=== PATIENT | female | born 1985 | race Hispanic/Latino ===

== ENCOUNTER 2019-02-28 05:39 | Day surgery (SDC) | payer BC ==
[2019-02-27 16:42] VITALS: BP 151/84
[2019-02-27 16:55] LABS: BASOPHILS % (AUTO) 0.3 % (0.0-5.0); EOSINOPHILS % (AUTO) 0.4 % (0.0-8.0); HEMATOCRIT 39.5 % (36-48); LYMPHOCYTES % (AUTO) 27.1 % (21.0-51.0); MEAN CORPUSCULAR HEMOGLOBIN 28.2 pg (27.0-33.0); MEAN CORPUSCULAR HGB CONC 33.7 g/dL (32.0-36.0); MEAN CORPUSCULAR VOLUME 83.6 fL (79-99); MONOCYTES % (AUTO) 6.4 % (3.0-13.0); NEUTROPHILS % (AUTO) 65.8 % (40.0-77.0); PLATELET COUNT (AUTO) 260 K/uL (130-400); RED BLOOD CELL COUNT(AUTO) 4.73 MIL/uL (4.00-5.50); RED CELL DISTRIBUTION WIDTH 13.8 % (11.0-15.5); WHITE BLOOD COUNT (AUTO) 12.1 K/uL (4.8-10.8)
[2019-02-27 17:18] LABS: CREATININE 0.7 mg/dL (0.5-1.5); POTASSIUM 3.3 mmol/L (3.5-5.1)
--- NOTE | 2019-02-27 17:54 | NUR ---
CALLED ABNORMAL WBC OF 12.1,K3.3. NO NEW ORDERS RECEIVED, OK TO PROCEED.
[~2019-02-28] VITALS: Ht 162.6 cm; Wt 85.1 kg
[2019-02-28] VITALS (15 sets, daily range): BP systolic 112–145; BP diastolic 70–89
[~2019-02-28 05:39] MED LIST: CYCL10 PO; OLME20TA22 PO; TYL3 PO
[2019-02-28] MEDS ORDERED: LACTATED RINGERS 1000ML 1,000 ML IV ONE (06:55)
[2019-02-28] MEDS ORDERED: CEFAZOLIN SODIUM 1 GM VIAL ONE ×2 (06:55→07:53)
--- NOTE | 2019-02-28 07:12 | NUR ---
POTENTIAL FOR INFECTION: SHAVED LEFT LEG / KNEE FOLLOWED BY WIPING WITH SAMMIE: 2% CHLORHEXIDINE GLUCONATE CLOTH PATIENTS PRE-OP SKIN PREP PER CHUCKIE LAWTON MA,
[2019-02-28] MEDS ORDERED: LIDOCAINE PF 2% 5ML ABBOJECT ONE (07:21)
[2019-02-28] MEDS ORDERED: PROPOFOL 10 MG/ML 20ML VIAL IV ONE (07:21)
[2019-02-28] MEDS ORDERED: GLYCOPYRROLATE 1 MG/5 ML SYRINGE ONE (07:21)
[2019-02-28] MEDS ORDERED: PHENYLEPHRINE HCL 10 MG/ML 1ML VIAL IV ONE (07:21)
[2019-02-28] MEDS ORDERED: NEOSTIGMINE 5MG/5ML SYR IV ONE (07:21)
[2019-02-28] MEDS ORDERED: MIDAZOLAM HCL 1 MG/ML 2ML VIAL ONE (07:22)
[2019-02-28] MEDS ORDERED: FENTANYL CITRATE PF 50 MCG/1 ML 2ML VIAL ONE ×3 (07:22→12:09)
[2019-02-28] MEDS ORDERED: ROCURONIUM 10MG/1ML SYR 10 MG/ML ML ONE (07:23)
[2019-02-28] MEDS ORDERED: ROPIVACAINE 0.5% 5MG/ML 30ML IJ ONE (07:49)
[2019-02-28] MEDS ORDERED: CEFAZOLIN SODIUM 1 GM VIAL IVP SCH (08:00)
[2019-02-28] MEDS ORDERED: DEXAMETHASONE SOD PHOSPHATE 10MG/ML 1ML VIAL ONE (09:10)
[2019-02-28] MEDS ORDERED: ONDANSETRON HCL 4 MG/2 ML VIAL ONE (09:10)
[2019-02-28] MEDS ORDERED: EPHEDRINE SULFATE 50 MG/ML AMPULE ONE (09:42)
[2019-02-28] MEDS ORDERED: KETOROLAC TROMETHAMINE 30MG/ML ONE (10:22)
[2019-02-28] MEDS ORDERED: HYDR-4457 PO (11:51)
[2019-02-28] MEDS ORDERED: CEPH500B PO (11:51)
[2019-02-28] MEDS ORDERED: NAPR-1192 PO (11:51)
--- NOTE | 2019-02-28 12:49 | NUR ---
ASSESSMENT RECEIVED PT FROM PACU STAFF Dash RIGGS RN. PT [id number]. DRSG TO LEFT DRY AND INTACT. NO BLEEDING, OOZING NOTED TO SITE. PT STATES SHE HAS CRUTCHES AT HOME.
--- NOTE | 2019-02-28 13:45 | NUR ---
DISCHARGE ORAL AND WRITTEN DISCHARGE INSTRUCTIONS GIVEN TO PT AND PTS GIRLFRIEND. PRESCRIPTION GIVEN TO GIRLFRIEND. NO OTHER QUESTIONS AT THIS TIME.
== END 2019-02-28 13:47 | disposition home or self-care (01) ==
LOC: DAH 05:39
PROVIDERS: ATTEND Orthopaedic Surgery
DX: S83.512A Sprain of anterior cruciate ligament of left knee, initial encounter (principal); S83.212A Bucket-handle tear of medial meniscus, current injury, left knee, initial encounter; X58.XXXA Exposure to other specified factors, initial encounter; Y93.61 Activity, american tackle football; Y92.89 Other specified places as the place of occurrence of the external cause; Y99.9 Unspecified external cause status; Z68.31 Body mass index [BMI] 31.0-31.9, adult; I10 Essential (primary) hypertension; F41.9 Anxiety disorder, unspecified; Z79.899 Other long term (current) drug therapy; Z98.890 Other specified postprocedural states; M22.42 Chondromalacia patellae, left knee; Z83.3 Family history of diabetes mellitus; Z82.49 Family history of ischemic heart disease and other diseases of the circulatory system
CPT/HCPCS: 29881; 29888; 36415; 80048; 84702; 85025; A4218; A4649 ×5; A4930; A6223; C1713; C1762; C1776; G0168; J0690 ×2; J1100; J1885; J2001; J2250; J2370; J2405; J2704; J2710; J2795; J3010 ×3; J3490 ×2; J7030; J7120